=== PATIENT | female | born 2005 | race Caucasian/White ===

== ENCOUNTER 2023-06-05 17:27 | Emergency (ER) | payer SELFPAY ==
[~2023-06-05] VITALS: Ht 165.1 cm; Wt 56.7 kg
[2023-06-05 17:34] VITALS: BP 105/67; PULSE 67; RESP 18; TEMP 98; O2SAT 99
[2023-06-05 18:00] VITALS: O2SAT 98
[2023-06-05] MEDS ORDERED: LORazepam 0.5 MG TAB PO ONE (18:10)
[2023-06-05 18:35] LABS: AMPHETAMINE, URINE NEGATIVE ng/ml (NEG <=1000); BARBITURATE, URINE NEGATIVE ng/ml (NEG <=200); BENZODIAZEPINE, URINE NEGATIVE ng/mL (NEG <=200); CANNABINOID, URINE NEGATIVE ng/mL (NEG <=50); COCAINE, URINE NEGATIVE ng/mL (NEG <=300); OPIATE, URINE NEGATIVE ng/mL (NEG <=2000); PHENCYCLIDINE SCREEN,URINE NEGATIVE ng/mL (NEG <=25)
[2023-06-05 19:08] VITALS: BP 118/67; PULSE 89; RESP 18; TEMP 98.4
[2023-06-05] MEDS ORDERED: ATA25 PO (19:09)
== END 2023-06-05 19:19 | disposition home or self-care (01) ==
LOC: MED 17:27
DX: F41.9 Anxiety disorder, unspecified (principal); Z79.899 Other long term (current) drug therapy
CPT/HCPCS: 80305; 81025; 93005; 99284